=== PATIENT | female | born 1945 | race Caucasian/White ===

== ENCOUNTER → 2018-12-25 | Outpatient (CLI) | payer OTHER ==
[~2018-12-25] MED LIST: CRESTOR20 MG PO; EVISTA PO; PREMPRO 0.3 MG1 EACH PO; PROZAC 20 MG20 M1 PO; SYNTHROID125 MCG PO; THERA-M CAPLET1 EACH PO; ZIAC 10-6.25 M1 EACH PO
== END ==
LOC: CAT 15:19
DX: Z13.6 Encounter for screening for cardiovascular disorders (principal); E78.00 Pure hypercholesterolemia, unspecified; I25.10 Atherosclerotic heart disease of native coronary artery without angina pectoris